=== PATIENT | male | born 1990 | race Caucasian/White ===

== ENCOUNTER 2021-08-17 14:24 | Emergency (ER) | payer OTHER ==
[~2021-08-17] VITALS: Ht 182.9 cm; Wt 81.6 kg
--- NOTE | 2021-08-17 15:18 | NUR ---
BIBS FOR C/O SORE THROAT AND EARACHE 10/30 X 4DAYS. "FEEL LIKE I HAVE SORES ON THE BACK OF MY THROAT". SEEN AT URGENT CARE AND IS ON ZPACK X2 DAYS. DENIES FEVER OR CHILLS. RESPIRATION REGULAR AND UNLABORED. DENIES SOB. RESPIRATION REGULAR AND UNLABORED. WILL CONTINUE TO MONITOR THE PATIENT.
[2021-08-17] MEDS ORDERED: AMOX-430 PO (15:50)
[2021-08-17] MEDS ORDERED: DEXAMETHASONE SOD PHOSPHATE 10 MG/ML VIAL ONE (15:56)
[2021-08-17] MEDS ORDERED: AMOX/CLAVULANATE 875 MG TABLET ONE (15:57)
[2021-08-17] MEDS ORDERED: AMOX/CLAVULANATE 875 MG TABLET PO ONE (16:00)
[2021-08-17] MEDS ORDERED: DEXAMETHASONE SOD PHOSPHATE 4 MG/ML VIAL IM ONE (16:00)
--- NOTE | 2021-08-17 16:04 | NUR ---
RAPID STREP SWAB DONE AND SENT TO THE LAB
[2021-08-17 16:06] VITALS: BP 132/87
--- NOTE | 2021-08-17 16:06 | NUR ---
Patient discharged to home in stable condition. Written and verbal after care instructions given. Patient verbalizes understanding of instruction.
== END 2021-08-17 16:06 | disposition home or self-care (01) ==
LOC: ER 14:28
DX: J03.90 Acute tonsillitis, unspecified (principal)
CPT/HCPCS: 87070; 87880; 96372; 99283; J1100; 86403-TC